=== PATIENT | female | born 1995 | race Caucasian/White ===

== ENCOUNTER 2024-01-13 05:28 | Inpatient (IN) ==
--- NOTE | 2023-12-28 10:06 | Anesthesiology Consultation ---
Date of Service December 28, 2023 Assessment & Plan (1) Encounter for pre-operative examination: Infectious disease screening: Per assessment on 12/28/23: No known infectious disease contacts or current infectious disease symptoms. No noted recent Covid positive test result. Chart Review Chart Review: direct entry midwife initiated History Surgery Operation Date: 01/13/24 07:30 Proposed Procedures p Section (Delivery of Baby Through Abdominal Incision) - Yoselin Elise MD, FACOG Height/Weight Height: 5 ft 8 in Weight: 131.542 kg Allergies Allergy/AdvReac Type Severity Reaction Status Date / Time morphine Allergy Mild Rash Verified 12/28/23 09:41 Medications Home Medications Medication Instructions Recorded Confirmed Last Taken acetone (urine) test (Ketone Urine #50 ea 06/24/23 12/23/23 Unknown Test strips) blood sugar diagnostic (OneTouch #150 ea 06/24/23 12/23/23 Unknown Verio test strips) blood-glucose meter (OneTouch #1 ea 06/24/23 12/23/23 Unknown Verio Reflect Meter) lancets 33 gauge (OneTouch Delica #150 ea 08/12/23 12/23/23 Unknown Plus Lancet) ondansetron HCl 4 mg tablet 4 mg PO Q8H PRN nausea and 09/30/23 12/28/23 Unknown vomiting #20 tabs prenat.vits,neal,pqt-fuhq-kkxin 1 tab PO HS 12/28/23 12/28/23 Unknown Past Medical History Medical History Gestational diabetes mellitus (GDM) affecting diet controlled History of chicken pox Past Family History Family History Mother Asthma Father Hypertension Other Diabetes Denies family history of Ovarian cancer Breast cancer Colorectal cancer Past Surgical History Surgical History History of S/P tonsillectomy S/P wisdom tooth extraction Social History Smoking Status: Never smoker Smoking cigarettes per day: 10 per day x 10 years Do You Dip or Chew Tobacco: No Hx Alcohol Use: No Hx Substance Use: No substance use type: does not use Lab Results Anesthesia Preop Results Results Anesthesia Widget: WBC 11.71 K/ul (4.8-10.8) H 04/29/24 Hgb 11.7 g/dl (12.0-16.0) L 12/26/23 Hct 36.5 % (37.0-47.0) L 12/26/23 Plt 322 K/uL (130-400) 12/26/23 Na 135 mmol/L (136-145) L 12/26/23 K 3.8 mmol/L (3.5-5.1) 12/26/23 Cl 104 mmol/L (98-107) 12/26/23 CO2 20 mmol/L (21-32) L 12/26/23 BUN 7 mg/dl (6-23) 12/26/23 Creat 0.53 mg/dl (0.6-1.2) L 12/26/23 Glucose Level 139 mg/dl (70-99(Fasting)) H 12/26/23
--- NOTE | 2024-01-12 09:03 | History & Physical Report ---
Date of Service January 12, 2024 Assessment & Plan (1) Group B streptococcal infection during : (2) Gestational diabetes mellitus (GDM) affecting : (3) Previous delivery affecting : Plan Presents for repeat c/s as first was in [place] for FTP. LTCS on report. The risks of surgery were discussed with the patient including the risks of anesthesia, bleeding requiring transfusion, infection, poor wound healing, urinary retention, damage to surrounding structures including bowels, bladder, vessels, nerves and ureters that may require further surgery, hospitalization or intervention. The other risks of any surgery were discussed including heart attack, blood clots, stroke or . Discussed risk of injury to the baby. Does not desire sterilization. Consent reviewed and signed. questions asked and answered. History of Present Illness Chief Complaint: repeat Primary Care Provider: NO PCP Patient is a 28yowf with iup at 39 6/7 who presents for repeat c/s. complicated as below. NOtes good fm and no labor sx. NO s/s of ghtn. and Delivery Plans Gestational Proteinuria 24hr 305mg @ 36w6d Serum PIH labs OK so far Watch for HTN GDM --> Non Compliant *Begin monthly Growth US's @24wks *Twice weekly NST's @ 36wks. Csection X 1 --FTP--ltcs ([facility]) C/S SCHEDULED FOR 01/13/[address] CORTES AND DR. SCHNEIDER ASSIST DESIRES * signed consent per pt Obesity (BMI 40 and higher @ beginning of )--45.3 *Growth US @ 32wks *Weekly NSTs @ 34wks *BMI 40 or greater offer detailed/level II anatomy at [facility] *BMI 40 or above offer delivery by EDC. Dilated right renal pelvis at ultrasound--5.3 recheck 24 weeks.--5.1mm Resolved at 28 weeks current everyday smoker covid nonvaccinated. GBS Positive *Treat in Labor OB Labs: Blood Type A Positive 06/10/23 Antibody Screen NEGATIVE 06/10/23 Hemoglobin 11.7 g/dl (12.0-16.0) L 12/26/23 Hematocrit 36.5 % (37.0-47.0) L 12/26/23 Mean Corpuscular Volume 88.4 fL (80.0-100.0) 12/26/23 Platelet Count 322 K/uL (130-400) 12/26/23 Rubella IgG Antibody Immune (Immune) 06/10/23 Rapid Plasma Reagin Nonreactive (Nonreactive) 06/10/23 Hepatitis B Surface Antigen. NON-REACTIVE (NON-REACTIVE) 06/10/23 Hepatitis C Antibody (EIA) NON-REACTIVE (NON-REACTIVE) 06/10/23 HIV (1&2) Ag and Ab Confirmation NON-REACTIVE (NON-REACTIVE) 06/10/23 OB Optional Labs: Chlamydia trachomatis RNA Not Detected (NotDetected) 06/10/23 Neisseria gonorrhoeae RNA Not Detected (NotDetected) 06/10/23 Labs Reviewed: Declines genetics--mln declined afp gbs positive. Allergies Allergy/AdvReac Type Severity Reaction Status Date / Time morphine Allergy Mild Rash Verified 01/12/24 09:58 Home Medications Medication Instructions Recorded Confirmed Type acetone (urine) test (Ketone Urine #50 ea 06/24/23 01/12/24 Rx Test strips) blood sugar diagnostic (OneTouch #150 ea 06/24/23 01/12/24 Rx Verio test strips) blood-glucose meter (OneTouch #1 ea 06/24/23 01/12/24 Rx Verio Reflect Meter) lancets 33 gauge (OneTouch Delica #150 ea 08/12/23 01/12/24 Rx Plus Lancet) ondansetron HCl 4 mg tablet 4 mg PO Q8H PRN nausea and 09/30/23 01/12/24 Rx vomiting #20 tabs prenat.vits,neal,zpa-kubr-ayeat 1 tab PO HS 12/28/23 01/12/24 History Patient History Medical History History of chicken pox Surgical History S/P tonsillectomy S/P wisdom tooth extraction History of Family History Mother Asthma Father Hypertension Other Diabetes Denies family history of Ovarian cancer Breast cancer Colorectal cancer Social History Smoking Status: Never smoker Tobacco Type: Cigarettes Cigarettes Per Day: 10 per day x 10 years; Second Hand Exposure: No; Do You Dip or Chew Tobacco: No; Hx Alcohol Use: No Hx Substance Use: No Preferred Language: Upper Sorbian [employer] Required: No Beliefs That Will Affect Care: None marital status: marital status details: Art Thomas 32 Current Living Situation: Spouse Current Living Situation Comment: son, spouse, 2 dogs. current occupational status: unemployed Feels Safe at Home: Yes Assistive Devices: Glasses OB History Past Pregnancies Del. Date GA wks Lbr Lgth wt Sex Type del Anes Place Del Prov ? Comment 07/13/19 40 6lbs M Ot her [facility] GDM Physical Exam Constitutional: WD/WN, vitals as above Cardiovascular: Extremities: + edema (tr); no calf tenderness Gastrointestinal (Abdomen): soft, gravid, nt Psychiatric: A+Ox3, euthymic affect Coding Level of Care Code None Diagnoses Group B streptococcal infection during O98.819; B95.1 Gestational diabetes mellitus (GDM) affecting O24.419 Previous delivery affecting O34.219
[2024-01-13] MEDS: LACTATED RINGER'S 1,000 ML IV SCH ×2 (05:55→07:28)
[2024-01-13] MEDS ORDERED: SODIUM CHLORIDE 0.9% 250 ML IV PRN (06:22)
[2024-01-13 06:38] LABS: Basophils # (auto) 0.04 K/uL (0.00-0.20); Basophils % (auto) 0.4 %; Eosinophils # (auto) 0.08 K/uL (0.00-0.50); Eosinophils % (auto) 0.8 %; Hematocrit (blood only) 36.2 % (37.0-47.0); Hemoglobin 12.2 g/dl (12.0-16.0); Immature Granulocytes # (auto) 0.06 K/uL (0.01-0.20); Immature Granulocytes % (auto) 0.6 %; Lymphocytes # (auto) 2.55 K/uL (1.20-3.40); Lymphocytes % (auto) 24.1 %; Mean Corpuscular Hgb Conc 33.7 g/dL (32.0-36.0); Mean Platelet Volume 12.1 fL (9.4-12.4); Monocytes # (auto) 0.64 K/uL (0.11-0.59); Neutrophils # (auto) 7.22 K/uL (1.40-6.50); Neutrophils % (auto) 68.1 %; Platelet Count 287 K/uL (130-400); RDW Coefficient of Variation 14.7 % (11.5-14.5); RDW Standard Deviation 45.8 fL (36.4-46.3); Red Blood Count 4.21 M/uL (4.20-5.40); White Blood Count 10.59 K/ul (4.8-10.8)
--- NOTE | 2024-01-13 07:14 | History & Physical Bridge Note ---
Date of Service January 13, 2024 History & Physical Bridge Note I have examined the patient, reviewed the History & Physical and in the interval since the performance of the History & Physical I have noted the following changes of clinical significance: no changes noted
[2024-01-13] MEDS ORDERED: MoRPHine SULFATE PF 1 MG/ML 10 ML AMP/VIAL ONE (07:22)
[2024-01-13] MEDS: CITRIC ACID/SODIUM CITRATE 15 ML UDC PO SCH (07:24)
[2024-01-13] MEDS: ceFAZolin 3000MG 3,000 MG/72.5 ML BAG IV SCH (07:27)
[2024-01-13] MEDS ORDERED: PHENYLEPHRINE 100MCG/ML 10ML SYR IV ONE (07:58)
[2024-01-13] MEDS ORDERED: PHENYLEPHRINE HCL 25 MG/250 ML NSS IV ONE (07:58)
[2024-01-13] MEDS ORDERED: KETOROLAC 30 MG/ML VIAL ONE (07:58)
[2024-01-13] MEDS ORDERED: ONDANSETRON INJ 2 MG/ML 2 ML VIAL ONE (07:58)
[2024-01-13] MEDS ORDERED: NALBUPHINE HCL 5 MG in SYRINGE 0 ML IV PRN (08:28)
[2024-01-13] MEDS ORDERED: MEPERIDINE HCL 25 MG/ML CARP/VIAL IV PRN (08:28)
[2024-01-13] MEDS ORDERED: diphenhydrAMINE 50 MG/ML VIAL IV PRN (08:28)
[2024-01-13] MEDS ORDERED: ePHEDrine sulfate 50 MG/ML AMP IV PRN (08:28)
[2024-01-13] MEDS ORDERED: LACTATED RINGER'S 500 ML IV PRN (08:28)
[2024-01-13] MEDS ORDERED: NALOXONE HCL 0.08 MG in SYRINGE 1.8 ML IV PRN (08:28)
[2024-01-13] MEDS ORDERED: HYDROmorphone INJ 0.5 MG/0.5 ML SYR IV PRN (08:28)
[2024-01-13] MEDS ORDERED: MoRPHine SULFATE PF 1 MG/ML 10 ML AMP/VIAL INT SPINAL ONE (08:28)
[2024-01-13] MEDS ORDERED: NALOXONE HCL 0.4 MG/1 ML VIAL/CARP IV PRN (08:28)
[2024-01-13] MEDS ORDERED: NALOXONE HCL 1 MG in SODIUM CHLORIDE 0.9% 1,000 ML IV PRN (08:28)
[2024-01-13] MEDS ORDERED: DC INTRASPINAL MORPHINE SCH (08:30)
[2024-01-13] MEDS ORDERED: SODIUM CHLORIDE 0.9% 1,000 ML IV SCH (08:30)
[2024-01-13] MEDS ORDERED: NO NARCOTICS OR SEDATIVES SCH (08:30)
--- NOTE | 2024-01-13 08:36 | Operative Report ---
PG Post Operative Report Pre & Post Diagnosis Operation Date: 01/13/24 07:30 Pre-Op Diagnosis: at 39 weeks History of Previous [facility] Section Post-Op Diagnosis: Same as preoperative I identified the patient and participated in the time-out.: Yes Procedure Operation Date: 01/13/24 07:30 Actual Procedures p Repeat lower transverse Section in [facility] at 0757 on 01/13/24(Bilateral) - Yoselin Elise MD, FACOG Surgeon Yoselin Elise MD, FACOG [place] [employer] Vijay Radford, MS2 Estimated Blood Loss 515 Findings Consistent with Post-Op Diagnosis viable female infant in cephalic presentation, clear amniotic fluid, Apgars 7/9. uterus and ovaries normal bilaterally. right tube adhesed to the lat/ant uterus. Fluids 1000cc uop--200cc, clear Specimens placenta Drains hanley Anesthesia Type Spinal Complications none Disposition Accompanied Patient To Recovery: Yes Disposition: L&D Indications 28yowf with hx of previous c/s Description of Procedure The patient was taken to the operating room where she was identified verbally and by bracelet. She was seated on the operating table where a spinal anesthetic was placed by anesthesia. She was then placed in the supine position with a leftward tilt. A Hanley catheter was placed sterilely. the patient was prepped and draped in a normal standard fashion. the anesthetic was tested and found to be adequate. A time-out was held, identifying correct patient, procedure, positioning and preoperative antibiotics. There were no concerns. A Pfannenstiel skin incision was made with a knife and taken down to the underlying layer of fascia with the knife and Bovie electrocautery. Bleeding was attended to with the Bovie. The fascia was incised in the midline with the knife and taken out laterally with scissors. The superior edge of the fascial incision was grasped, elevated and the underlying layer of rectus muscle was taken off bluntly and with scissors. In a similar fashion, the inferior edge of the fascial incision was grasped, elevated and the underlying layer of rectus muscle was taken off bluntly and with scissors. The muscles were bluntly in the midline. The peritoneum was entered bluntly. The incision was then stretched. The bladder blade was placed. The vesicouterine peritoneum was identified, entered with scissors and taken out laterally with scissors. The bladder flap was created digitally A hysterotomy incision was scored with a knife and the incision was stretched superiorly and inferiorly with the unisaw operator's fingers. The operators hand was placed into the incision and the head was delivered atraumatically. No nuchal cord. The nose and mouth were bulb suctioned. the rest of the infant was then delivered without difficulty. The nose and mouth were again bulb suctioned. The cord was clamped and cut and the infant was then handed off to the awaiting alcohol still operator for drying and attention. Cord blood and segment were obtained. The placenta was Manually extracted. The uterus was exteriorized and cleared of all clot and debris with moistened laparotomy sponges. The hysterotomy incision was repaired in two layers, the first in a running locked layer, the second in an imbricating layer. Hemostasis was noted to be good. Posterior cul-de-sac was irrigated and cleared of all clot and debris. The right Fallopian tube was from the anterior uterus using cautery on the adhesions. Some small bleeders were then cauterized. The hysterotomy incision was again inspected and found to be hemostatic. the uterus was reinteriorized. Hysterotomy incision was again inspected and found to be hemostatic. Rectus muscles were reapproximated with several interrupted stitches of 0 Vicryl. The fascia was then reapproximated with 0 Vicryl starting at the edges and meeting in the midline. The subcuticular tissues were copiously irrigated and bleeding was attended to with cautery. The skin was then closed with 4-0 Vicryl in a subcuticular fashion. All sponge, lap and needle counts were correct x 2. the patient tolerated the procedure well and was taken to the recovery room in stable condition. I attest to the content of the Intraoperative Record and any orders documented therein. Any exceptions are noted below.
[2024-01-13] MEDS ORDERED: LACTATED RINGER'S 1,000 ML IV SCH (09:12)
[2024-01-13] MEDS ORDERED: BENZOCAINE 20% SPRY 85 APPLN/85 GM CAN EXT PRN (09:12)
[2024-01-13] MEDS ORDERED: HYDROCORTISONE ACETATE 25 MG SUPP PR PRN (09:12)
[2024-01-13] MEDS ORDERED: SENNA 8.6 MG TAB PO PRN (09:12)
[2024-01-13] MEDS ORDERED: MAGNESIUM HYDROXIDE SUSP 30 ML UDC PO PRN (09:12)
[2024-01-13] MEDS: OXYTOCIN 20 UNITS/LR 1,002 ML IV SCH (11:03)
[2024-01-13] MEDS ORDERED: ONDANSETRON INJ 2 MG/ML 2 ML VIAL IV PRN ×2 (12:29→12:30)
[2024-01-13] MEDS ORDERED: PROMETHAZINE HCL 6.25 MG in SODIUM CHLORIDE 0.9% 50 ML IV PRN (12:30)
[2024-01-13] MEDS: SIMETHICONE 80 MG CHEW PO SCH (12:49)
--- NOTE | 2024-01-13 14:27 | Anesthesiology Progress Note ---
Date of Service January 13, 2024 Anesthesia Post Procedure Vital Signs Vital Signs: Temp Pulse Resp BP Pulse Ox 01/13/24 10:33 77 92 01/13/24 10:32 70 113/58 L 01/13/24 10:28 78 93 01/13/24 10:23 84 94 01/13/24 10:22 36.4 C L 20 01/13/24 10:22 69 126/66 01/13/24 10:18 73 95 01/13/24 10:13 77 95 01/13/24 10:12 76 120/66 01/13/24 10:08 83 95 01/13/24 10:03 74 95 01/13/24 10:02 80 118/65 01/13/24 09:58 79 95 01/13/24 09:55 73 110/57 L 01/13/24 09:53 75 96 01/13/24 09:52 16 01/13/24 09:48 76 96 01/13/24 09:44 77 123/60 01/13/24 09:43 87 94 01/13/24 09:38 79 96 01/13/24 09:33 75 94 01/13/24 09:32 70 116/59 L 01/13/24 09:28 79 94 01/13/24 09:23 82 94 01/13/24 09:22 16 01/13/24 09:22 78 124/66 01/13/24 09:18 85 94 01/13/24 09:13 78 95 01/13/24 09:12 16 01/13/24 09:12 79 126/66 01/13/24 09:08 72 96 01/13/24 09:03 76 96 01/13/24 09:02 18 01/13/24 09:02 76 123/64 01/13/24 08:58 75 96 01/13/24 08:54 75 118/63 01/13/24 08:53 76 95 01/13/24 08:52 18 01/13/24 08:48 78 93 01/13/24 08:43 86 93 01/13/24 08:42 18 01/13/24 08:42 91 H 131/56 L 01/13/24 08:38 98 H 92 01/13/24 08:37 95 H 90 01/13/24 08:33 93 H 99 01/13/24 08:32 18 01/13/24 08:32 96 H 136/74 01/13/24 08:28 89 100 01/13/24 08:23 90 99 01/13/24 08:22 36.7 C 18 01/13/24 08:22 88 133/71 01/13/24 07:23 20 01/13/24 07:23 36.7 C 20 01/13/24 07:07 86 135/91 01/13/24 05:50 36.8 C 18 01/13/24 05:46 89 129/76 01/13/24 05:40 18 01/13/24 05:40 36.8 C 18 Pain Intensity Lower Abdomen: Pain Intensity: 9 Transfer of Care Handoff Completed per policy Notes Mental Status: alert / awake / arousable Nausea / Vomiting: adequately controlled Pain: adequately controlled Airway Patency, RR, SpO2: stable & adequate BP & HR: stable & adequate Hydration State: stable & adequate Neuraxial Anesthesia: was administered and sensory block is resolving Anesthetic Complications: no major complications apparent and Pt Satisfied with anesthetic care
[2024-01-13] MEDS: KETOROLAC 30 MG/ML VIAL IV PRN (17:39)
[2024-01-13] MEDS: DOCUSATE SODIUM 100 MG CAP PO SCH (21:31)
[2024-01-13] MEDS: LACTATED RINGER'S 500 ML IV ONE (23:53)
[2024-01-14] MEDS ORDERED: diphenhydrAMINE 50 MG/ML VIAL IV PRN (02:28)
[2024-01-14] MEDS ORDERED: PROMETHAZINE HCL 25 MG in SODIUM CHLORIDE 0.9% 50 ML IV PRN (02:28)
[2024-01-14] MEDS ORDERED: diphenhydrAMINE Capsule 25 MG CAP PO PRN (02:28)
[2024-01-14] MEDS ORDERED: MEPERIDINE HCL 50 MG/ML CARP IV PRN (02:28)
[2024-01-14] MEDS ORDERED: KETOROLAC 30 MG/ML VIAL IV PRN (02:28)
[2024-01-14] MEDS ORDERED: ONDANSETRON INJ 2 MG/ML 2 ML VIAL IV PRN (02:28)
[2024-01-14] MEDS: IBUPROFEN 600 MG TAB PO PRN (03:06)
[2024-01-14] MEDS: oxyCODONE/ACETAMINOPHEN 5mg/325mg TAB PO PRN (03:07)
--- NOTE | 2024-01-14 06:04 | Obstetrical Progress Note ---
Date of Service <Rahul Eubanks MD - Last Filed: 01/14/24 07:38> January 14, 2024 Assessment & Plan <Rahul Eubanks MD - Last Filed: 01/14/24 07:38> (1) S/P : Plan 30 yo , status post on 01/13/24. - Pt doing well clinically. Feels well today. Eating well, has not voided since Sigala removed at 2.30 am, ambulating well. Pain well controlled with PRN pain meds. - Routine care -- OOB, ambulation, diet progression as tolerated Vital Signs reviewed and WNL. (Tmax at 36.7) Hemoglobin Reviewed. 12.2 (01/12), pending (today). Blood Type: A+, GBS+, Rubella Immune. Encourage ambulation, monitor and control pain with Motrin PRN, resume regular diet, monitor lochia. Breast feeding encouraged. After discharge will have 6 week follow-up with Dr. Elise. Pt not counselled on discharge instructions. <Vesta Hendrix MD - Last Filed: 01/14/24 09:41> (1) S/P : Subjective <Rahul Eubanks MD - Last Filed: 01/14/24 07:38> Ambulation: ambulating normally (w/ pain) Voiding: voiding difficulty (unable to void immediately after removal of Sigala at 2:30 am) Passing Gas:: Yes Diet Tolerance:: regular diet Lochia:: Small Feeding Type:: breast feeding Current Pain Level(1-10): 3 (incisional site pain) Constitutional: + fatigue; no fever or no chills Ear, Nose, Mouth, Throat: no nasal congestion, no nasal discharge, no sinus pain/pressure or no sore throat Respiratory: + cough (dry cough); no dyspnea Cardiovascular: no chest pain or no palpitations Breast: no breast pain Gastrointestinal: + abdominal pain; no nausea (no nausea since 4pm yesterday), no vomiting, no constipation or no diarrhea/loose stools Integumentary: + pruritus (legs and back) Neurologic: no tingling, no numbness or no headache(s) Physical Exam <Rahul Eubanks MD - Last Filed: 01/14/24 07:38> Constitutional WD/WN, vitals as above Respiratory normal respiratory effort, lungs clear to auscultation Cardiovascular RRR, no murmur, no edema Extremities: normal capillary refill; no calf tenderness Gastrointestinal (Abdomen) Inspection/Auscultation: abdomen normal to inspection and normal bowel sounds Percussion/Palpation: + abdomen tender Psychiatric A+Ox3, euthymic affect Results & Data <Rahul Eubanks MD - Last Filed: 01/14/24 07:38> Vital Signs (Past 12 Hours) Vital Signs Temp Pulse Resp BP Pulse Ox O2 Del Method 01/14/24 02:38 18 95 01/14/24 02:38 36.7 C 72 18 104/71 95 Room Air 01/14/24 01:30 18 96 01/14/24 00:15 18 99 01/13/24 23:35 20 97 01/13/24 23:33 36.6 C 91 H 20 115/62 97 Room Air 01/13/24 22:00 18 97 01/13/24 21:06 18 97 01/13/24 20:15 18 97 01/13/24 19:19 18 95 01/13/24 19:19 36.5 C 76 18 116/76 95 Room Air Supervising Physician <Vesta Hendrix MD - Last Filed: 01/14/24 09:41> Co-Signing Physician Notes Resident Physician Supervision Note: I interviewed and examined the patient. Discussed with Dr. Eubanks and agree with findings and plan as documented in the note. Any exceptions or clarifications are listed here: POD1 s/p CS, doing well. Voided. VSS, exam benign, incision c/d/i. Continue routine care Documented By: Vesta Hendrix MD
[2024-01-14] MEDS: FERROUS SULFATE 325 MG TAB PO SCH (07:48)
[2024-01-14] MEDS: PRENATAL VITAMIN 1 TAB PO SCH (07:48)
[2024-01-14 07:55] LABS: Basophils # (auto) 0.05 K/uL (0.00-0.20); Basophils % (auto) 0.5 %; Eosinophils # (auto) 0.15 K/uL (0.00-0.50); Eosinophils % (auto) 1.4 %; Hematocrit (blood only) 33.7 % (37.0-47.0); Hemoglobin 11.1 g/dl (12.0-16.0); Immature Granulocytes # (auto) 0.04 K/uL (0.01-0.20); Immature Granulocytes % (auto) 0.4 %; Lymphocytes # (auto) 2.19 K/uL (1.20-3.40); Lymphocytes % (auto) 20.6 %; Mean Corpuscular Hgb Conc 32.9 g/dL (32.0-36.0); Mean Platelet Volume 11.7 fL (9.4-12.4); Monocytes # (auto) 0.57 K/uL (0.11-0.59); Monocytes % (auto) 5.4 %; Neutrophils # (auto) 7.61 K/uL (1.40-6.50); Neutrophils % (auto) 71.7 %; Platelet Count 230 K/uL (130-400); RDW Standard Deviation 48.4 fL (36.4-46.3); Red Blood Count 3.83 M/uL (4.20-5.40); White Blood Count 10.61 K/ul (4.8-10.8)
[2024-01-14] MEDS: bisacodyL 5 MG TABEC PO SCH (21:10)
[2024-01-14] MEDS: DIPHTHER/TETAN/PERTUS Vaccine (Tdap, Adol/Adult) 0.5mL IM ONE (22:25)
[2024-01-15 06:44] LABS: Hematocrit (blood only) 33.6 % (37.0-47.0); Hemoglobin 10.9 g/dl (12.0-16.0)
--- NOTE | 2024-01-15 07:28 | Obstetrical Progress Note ---
Date of Service January 15, 2024 Assessment & Plan (1) S/P : Plan Doing well. If baby ok, would like to be d/c today. Will monitor through day. Day #:: 2 Subjective Ambulation: ambulating normally Voiding: no voiding problems Passing Gas:: Yes Diet Tolerance:: regular diet Lochia:: Small Feeding Type:: breast feeding (with supplement) Baby just came off IVF for sugar management. Physical Exam Constitutional WD/WN, vitals as above Cardiovascular Extremities: no calf tenderness and no edema Gastrointestinal (Abdomen) soft, nt, nd, ff/nt at u incision c/d/i Psychiatric A+Ox3, euthymic affect Results & Data Vital Signs (Past 12 Hours) Vital Signs Temp Pulse Resp BP Pulse Ox O2 Del Method 01/14/24 23:00 36.6 C 74 20 122/78 98 Room Air
[2024-01-15] MEDS ORDERED: bisacodyL 10 MG SUPP PR PRN (08:28)
--- NOTE | 2024-01-17 08:48 | Discharge Summary ---
Date of Service January 17, 2024 Admission HPI Per Admitting Provider Patient is a 28yowf with iup at 39 6/7 who presents for repeat c/s. complicated as below. NOtes good fm and no labor sx. NO s/s of ghtn. and Delivery Plans Gestational Proteinuria 24hr 305mg @ 36w6d Serum PIH labs OK so far Watch for HTN GDM --> Non Compliant *Begin monthly Growth US's @24wks *Twice weekly NST's @ 36wks. Csection X 1 --FTP--[facility]cs ([facility]) C/S SCHEDULED FOR 01/13/[address] CORTES AND DR. SCHNEIDER ASSIST DESIRES * signed consent per pt Obesity (BMI 40 and higher @ beginning of )--45.3 *Growth US @ 32wks *Weekly NSTs @ 34wks *BMI 40 or greater offer detailed/level II anatomy at [facility] *BMI 40 or above offer delivery by EDC. Dilated right renal pelvis at ultrasound--5.3 recheck 24 weeks.--5.1mm Resolved at 28 weeks current everyday smoker covid nonvaccinated. GBS Positive *Treat in Labor OB Labs: Blood Type A Positive 06/10/23 Antibody Screen NEGATIVE 06/10/23 Hemoglobin 11.7 g/dl (12.0-16.0) L 12/26/23 Hematocrit 36.5 % (37.0-47.0) L 12/26/23 Mean Corpuscular Volume 88.4 fL (80.0-100.0) 12/26/23 Platelet Count 322 K/uL (130-400) 12/26/23 Rubella IgG Antibody Immune (Immune) 06/10/23 Rapid Plasma Reagin Nonreactive (Nonreactive) 06/10/23 Hepatitis B Surface Antigen. NON-REACTIVE (NON-REACTIVE) 06/10/23 Hepatitis C Antibody (EIA) NON-REACTIVE (NON-REACTIVE) 06/10/23 HIV (1&2) Ag and Ab Confirmation NON-REACTIVE (NON-REACTIVE) 06/10/23 OB Optional Labs: Chlamydia trachomatis RNA Not Detected (NotDetected) 06/10/23 Neisseria gonorrhoeae RNA Not Detected (NotDetected) 06/10/23 Labs Reviewed: Declines genetics--mln declined afp gbs positive. Discharge Data Consultations 01/13/24 05:47 Consult Anesthesiology Stat Procedures Performed Operation Date: 01/13/24 07:30 Actual Procedures p Section in [facility] at 0757 on 01/13/24(Bilateral) - Yoselin Cortes [place] [facility] [place] (1) S/P : (2) Gestational diabetes: Plan Patient underwent a repeat lower transverse without difficulty on 01/12. QBL--515cc. The patient's postoperative course was uncomplicated. She tolerated a regular diet, ambulated without difficulty, voided after removal of Sigala, had her pain well controlled with oral pain meds. d/c on 01/14 with routine d/c instructions. Coding Level of Care Code None Diagnoses S/P Z98.891 Gestational diabetes O24.419
== END 2024-01-15 16:05 | disposition home or self-care (01) | DRG 788 ==
LOC: 4S1 05:28 → EDSTATUS 07:30 → 4E2 10:45
DX: O24.429 Gestational diabetes mellitus in childbirth, unspecified control; Z37.0 Single live birth; O99.334 Smoking (tobacco) complicating childbirth; O34.211 Maternal care for low transverse scar from previous cesarean delivery; Z88.5 Allergy status to narcotic agent; Z3A.39 39 weeks gestation of pregnancy; F17.210 Nicotine dependence, cigarettes, uncomplicated